=== PATIENT | female | born 1950 | race Caucasian/White ===

== ENCOUNTER 2017-07-19 17:41 | Emergency (ER) | payer OTHER, BC ==
[2017-07-19] MEDS ORDERED: FENTANYL CITRATE INJ/PF 100 MCG/2 ML AMPUL ONE ×3 (18:05→20:25)
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
[2017-07-19 18:49] LABS: PROTHROMBIN TIME 13.4 SEC (11.4-15.4)
[2017-07-19 18:50] LABS: PARTIAL THROMBOPLASTIN TIME 29.5 SEC (23.5-35.8)
[2017-07-19 18:53] LABS: HEMATOCRIT 40.3 % (36.0-47.0); HEMOGLOBIN 13.7 g/dL (12.0-15.5); HGB HCT DIFFERENCE 0.8; MEAN CORPUSCULAR HEMOGLOBIN 31.5 pg (27.0-33.4); MEAN CORPUSCULAR HGB CONC 33.9 g/dL (32.0-36.0); MEAN CORPUSCULAR VOLUME 93 fl (80-97); RED BLOOD COUNT 4.34 10^6/uL (3.72-5.28); RED CELL DISTRIBUTION WIDTH 14.2 % (11.5-14.0); WHITE BLOOD COUNT 18.4 10^3/uL (4.0-10.5)
--- NOTE | 2017-07-19 18:53 | RADIOLOGY REPORT (SQ) ---
EXAM DESCRIPTION: FOREARM BILATERAL 2 VIEWS COMPLETED DATE/TIME: 07/19/2017 6:23 pm REASON FOR STUDY: bilateral forearm pain COMPARISON: None. NUMBER OF VIEWS: Two views. TECHNIQUE: Two radiographic images acquired of the right and left forearm, including elbow and wrist in at least one projection. LIMITATIONS: None. FINDINGS: MINERALIZATION: Normal. BONES: There are transverse fractures of the distal radius on each side with dorsal angulation. Ther e appears to be a fracture of the ulnar styloid on the right. SOFT TISSUES: No obvious swelling or foreign body. OTHER: No other significant finding. IMPRESSION: Bilateral fractures as described. TECHNICAL DOCUMENTATION: JOB ID: [id number] [employer]- All Rights Reserved
--- NOTE | 2017-07-19 18:54 | RADIOLOGY REPORT (SQ) ---
EXAM DESCRIPTION: PELVIS AP COMPLETED DATE/TIME: 07/19/2017 6:23 pm REASON FOR STUDY: FALL COMPARISON: None. NUMBER OF VIEWS: One view TECHNIQUE: AP Pelvis LIMITATIONS: None. FINDINGS: MINERALIZATION: Normal. HIPS: There is no high intertrochanteric fracture of the left hip. PELVIS AND SACRUM: No acute fracture or dislocation. No worrisome bone lesions. PUBIS AND ISCHIUM: No acute fracture. LOWER LUMBAR SPINE: No significant findings as visualized. SOFT TISSUES: No findings. OTHER: No other significant finding. IMPRESSION: Intertrochanteric fracture of the left hip. TECHNICAL DOCUMENTATION: JOB ID: [id number] [employer]- All Rights Reserved
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
[2017-07-19] MEDS ORDERED: PROPOFOL INJ 200 MG/20 ML VIAL IV ONE (19:03)
[2017-07-19] MEDS ORDERED: ONDANSETRON HCL INJ/PF 4 MG/2 ML SDV IV ONE (19:03)
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
[2017-07-19] MEDS ORDERED: PROPOFOL 0 ML IV ONE (19:07)
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
[2017-07-19 19:25] LABS: BAND NEUTROPHILS % (MANUAL) 3 % (3-5); BASOPHILS % (MANUAL) 0 % (0-2); EOSINOPHILS % (MANUAL) 2 % (0-6); LYMPHOCYTES % (MANUAL) 15 % (13-45); TOTAL CELLS COUNTED 100
[2017-07-19 19:26] LABS: ANISOCYTOSIS SLIGHT; TOXIC GRANULATION SLIGHT
[2017-07-19 19:48] LABS: ALANINE AMINOTRANSFERASE 63 U/L (9-52); ALBUMIN 3.4 g/dL (3.5-5.0); ALKALINE PHOSPHATASE 66 U/L (38-126); ANION GAP 11 (5-19); ASPARTATE AMINO TRANSFERASE 72 U/L (14-36); BILIRUBIN,DIRECT 0.4 mg/dL (0.0-0.4); BILIRUBIN,TOTAL 0.7 mg/dL (0.2-1.3); BLOOD UREA NITROGEN 16 mg/dL (7-20); CALCIUM 8.6 mg/dL (8.4-10.2); CARBON DIOXIDE 22 mmol/L (22-30); CHLORIDE 107 mmol/L (98-107); CREATININE RESULT 0.67 mg/dL (0.52-1.25); GLUCOSE 191 mg/dL (75-110); POTASSIUM 3.7 mmol/L (3.6-5.0); SODIUM 139.9 mmol/L (137-145)
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
[2017-07-19] MEDS: FENTANYL CITRATE INJ/PF 100 MCG/2 ML AMPUL IV PRN ×3 (20:25→22:41)
[2017-07-19] MEDS ORDERED: NORMAL SALINE 1000 ML 1,000 ML IV PRN (20:53)
--- NOTE | 2017-07-19 21:17 | RADIOLOGY REPORT (SQ) ---
EXAM DESCRIPTION: FOOT RIGHT COMPLETE COMPLETED DATE/TIME: 07/19/2017 8:51 pm REASON FOR STUDY: deformity COMPARISON: None. NUMBER OF VIEWS: Three views. TECHNIQUE: AP, lateral and oblique radiographic images acquired of the right foot. LIMITATIONS: None. FINDINGS: MINERALIZATION: Normal. BONES: No acute fracture or dislocation. No worrisome bone lesions. JOINTS: There are apparent subluxations of the 1st and 2nd digits at the level of the MTP joint. Joseph lux valgus is identified. SOFT TISSUES: No soft tissue swelling. No foreign body. OTHER: Plantar and Achilles tendon spurring is identified. IMPRESSION: No acute fracture dislocation. Other findings as noted above TECHNICAL DOCUMENTATION: JOB ID: [id number] [employer]- All Rights Reserved
[2017-07-19 23:32] VITALS: BP 131/62
--- NOTE | 2017-07-20 12:19 | EKG REPORT ---
SEVERITY:- ABNORMAL ECG - SINUS RHYTHM PROBABLE LEFT ATRIAL ABNORMALITY INDETERMINATE QRS AXIS LOW VOLTAGE IN FRONTAL LEADS ABNORMAL T, CONSIDER ISCHEMIA, LATERAL LEADS : Confirmed by: Tameka Mahmood MD 20-Jul-2017 12:18:46
== END 2017-07-20 | disposition short-term general hospital (02) ==
LOC: ER 17:41
PROC: 0PSJXZZ Reposition Left Radius, External Approach (ICD-10-PCS; principal; 2017-07-19)
PROC: 0PSLXZZ Reposition Left Ulna, External Approach (ICD-10-PCS; 2017-07-19)
PROC: 0PSHXZZ Reposition Right Radius, External Approach (ICD-10-PCS; 2017-07-19)
PROC: 0PSKXZZ Reposition Right Ulna, External Approach (ICD-10-PCS; 2017-07-19)
PROC: 0SSMXZZ Reposition Right Metatarsal-Phalangeal Joint, External Approach (ICD-10-PCS; 2017-07-19)
DX: S72.002A Fracture of unspecified part of neck of left femur, initial encounter for closed fracture (principal); S62.102A Fracture of unspecified carpal bone, left wrist, initial encounter for closed fracture; S62.101A Fracture of unspecified carpal bone, right wrist, initial encounter for closed fracture; S93.124A Dislocation of metatarsophalangeal joint of right lesser toe(s), initial encounter; S93.121A Dislocation of metatarsophalangeal joint of right great toe, initial encounter; S20.219A Contusion of unspecified front wall of thorax, initial encounter; R07.81 Pleurodynia; M79.671 Pain in right foot; M79.601 Pain in right arm; M79.602 Pain in left arm; V87.7XXA Person injured in collision between other specified motor vehicles (traffic), initial encounter
CPT/HCPCS: 93005; 86900; 86901; 36415; 86850; 85025; 85610; 85730; 80053; 73630; 72170; 73090; 70450; 71260; 72125; 74177; 93010; 25605; 28630; L0120; J3010; J2405; J7030; J2704

== ENCOUNTER → 2018-01-19 | Outpatient (CLI) | payer BC ==
--- NOTE | 2018-01-19 11:00 | RADIOLOGY REPORT (SQ) ---
EXAM DESCRIPTION: CT LT LOWER EXTREMITY WITHOUT COMPLETED DATE/TIME: 01/19/2018 10:31 am REASON FOR STUDY: LEFT HIP PAIN (M25.552) M25.552 PAIN IN LEFT HIP S72.142D DISPL INTERTROCH FX L FEMUR, SUBS FOR CLOS FX W ROU COMPARISON: AP pelvis 07/19/2017 CT abdomen pelvis 07/19/2017 TECHNIQUE: CT scan of the left hip performed without intravenous or oral contrast. Images reviewed with soft tissue and bone windows. Reconstructed coronal and sagittal MPR images reviewed. All imag es stored on PACS. All CT scanners at this facility use dose modulation, iterative reconstruction, and/or weight based d osing when appropriate to reduce radiation dose to as low as reasonably achievable (ALARA). [facility]: Dose Right [facility]: CareDose [facility]: Dose Right [facility]: Teradose 4D [facility]: Smart Corrupt Lace RADIATION DOSE: CT Rad equipment meets quality standard of care and radiation dose reduction techniq ues were employed. CTDIvol: 16.6 mGy. DLP: 634 mGy-cm. mGy. LIMITATIONS: None. FINDINGS: Patient is post ORIF of a left hip intertrochanteric fracture with a lag screw and intrame dullary nail. The fracture line is still apparent. There is telescoping of the lag screw through the proximal intr amedullary nail. The lag screw protrudes through the weight-bearing surface left femoral head, and i nto the left hip joint space best shown on coronal reconstruction series 301, image 45/92. There is no lucency around the femoral component worrisome for loosening or infection. The left hemipelvis bones are otherwise osteopenic, with vacuum phenomenon and bony spurring at the l eft SI joint. Soft tissues around the hip, limited view of the soft tissues in the pelvis are unremarkable. IMPRESSION: Telescoping of the left hip lag screw through the intramedullary nail. Persistent fract ure line is evident on the coronal reconstructions along the left proximal femur intertrochanteric re gion The left hip screw protrudes through the superior weight-bearing femoral head articular surface into the left hip joint space best shown on coronal reconstructions. TECHNICAL DOCUMENTATION: JOB ID: [id number] Quality ID # [id number]: Final reports with documentation of one or more dose reduction techniques (e.g., Au tomated exposure control, adjustment of the mA and/or kV according to patient size, use of iterative reconstruction technique) 2010 [employer]- All Rights Reserved Reading location - IP/workstation name: [email or web address]
== END ==
LOC: RAD 09:52
PROVIDERS: ATTEND Orthopaedic Surgery
DX: M25.552 Pain in left hip (principal); X58.XXXD Exposure to other specified factors, subsequent encounter; S72.142D Displaced intertrochanteric fracture of left femur, subsequent encounter for closed fracture with routine healing; Z98.890 Other specified postprocedural states